=== PATIENT | female | born 1960 | race Caucasian/White ===

== ENCOUNTER 2018-10-09 07:56 | Emergency (ER) | payer BC ==
[2018-10-09 08:15] VITALS: BP 133/94
--- NOTE | 2018-10-09 08:26 | UC ---
Back Pain HPI - HPI Summary HPI Summary: 57 y/o female presents to the urgent care c/o left side lower back pain and left hip pain s/p shoveling yesterday. Pt reports after she shoveled some snow. She stretched her back to removed the snow from the toped of her car. Then she went inside and sat on the floor to work on some papers. When she tried to get up her lower back pain was triggered. Pain is 8/10 sharp w/ movement and her hip feels very stiff. She took 1 tab PO of Aleve last night to alleviate symptoms. She states Hx of lumbar fractures s/p surgery about [address] [facility].Pt denies saddle anesthesia, urinary or fecal incontinence, urianry symptoms, fever, flank pain, abdominal pain, N/V/D. - History of Current Complaint Chief Complaint: UCLowerExtremity Stated Complaint: LT SIDE LOWER BACK PAIN Time Seen by Provider: 10/09/18 08:16 Hx Obtained From: Patient ?: No - Menopausal Onset/Duration: Sudden Onset, Lasting Days - 1 day, Still Present, Worse Since - this morning Timing: Constant, Lasting Days - 1 day Severity Initially: Moderate Severity Currently: Moderate Pain Intensity: 8 Pain Scale Used: 0-10 Numeric Back Pain: Is Discrete @ - left side of the lower back, Radiates To - left hip Character: Sharp - w/ standing up, Spasmodic Aggravating Factor(s): Movement - Allergies/Home Medications Allergies/Adverse Reactions: Allergies Allergy/AdvReac Type Severity Reaction Status Date / Time No Known Allergies Allergy Verified 10/09/18 08:10 Home Medications: Home Medications diphenhydrAMINE HCl [Allergy Medication] 25 mg PO DAILY 10/09/18 [History Confirmed 10/09/18] PMH/Surg Hx/FS Hx/Imm Hx Previously Healthy: Yes Other Endocrine History: osteopenia - Surgical History Surgical History: Yes Surgery Procedure, Year, and Place: back surgery 5-6 years ago. implant for L ear - Family History Known Family History: Positive: Hypertension, Diabetes - Social History Occupation: Employed Full-time Lives: With Family Alcohol Use: Rare Substance Use Type: None Smoking Status (MU): Never Smoked Tobacco Review of Systems All Other Systems Reviewed And Are Negative: Yes Constitutional: Positive: Negative Skin: Positive: Negative Eyes: Positive: Negative ENT: Positive: Negative Respiratory: Positive: Negative Cardiovascular: Positive: Negative Gastrointestinal: Positive: Negative Genitourinary: Positive: Negative Motor: Positive: Negative Neurovascular: Positive: Negative Musculoskeletal: Positive: Decreased ROM - lower back, Other: - lower back pain s/p shoveling Neurological: Positive: Negative Psychological: Positive: Negative Is Patient Immunocompromised?: No Physical Exam - Summary Physical Exam Summary: Vital Signs Reviewed: Yes Appearance: Well-Appearing, Well-Nourished, female sitting in the examining table w/o any apparent distress. Eyes: Positive: Conjunctiva Clear - PERRLA, EOMI. ENT: Positive: Normal ENT inspection, Hearing grossly normal, Pharynx normal, TMs normal, Uvula midline Neck: Positive: Supple, Nontender, No Lymphadenopathy Respiratory: Positive: Chest non-tender, Lungs clear, Normal breath sounds, No respiratory distress Cardiovascular: Positive: RRR, No Murmur, Pulses Normal, Brisk Capillary Refill Abdomen Description: Positive: Nontender, No Organomegaly, Soft. Negative: CVA Tenderness (R), CVA Tenderness (L) Bowel Sounds: Positive: Present Musculoskeletal: Positive: Strength Intact, BACK: Patient walked into the urgent care room with symmetric ambulation, No signs of limping, antalgic, able to bear weight. No signs of trauma, No masses palpated. left side paraspinal muscle tenderness at the level of L5-S1 w/ spasm, No CVAT B/L , no flank ecchymosis . No sacroiliac notch tenderness, No saddle anesthesia. ROM: limited due to pain, Straight Leg Raise: negative. Patellar reflexes: brisk, symmetric Muscle strength lower extremities. Dorsiflexion/ plantar flexion of ankles. Heel / toe walk. Lower extremities: Femoral, popliteal, posterior tibial, and dorsalis pedis pulses WNL, POint tenderness over the mid glutues, no swelling or bruising observed. Pt refuse rectal exam Neurological: Positive: Alert, Muscle Tone Normal Psychological Exam: Normal Skin Exam: Normal Triage Information Reviewed: Yes Vital Signs: Initial Vital Signs Temp 97.3 F 10/09/18 08:11 Pulse 98 10/09/18 08:11 Resp 20 10/09/18 08:11 BP 133/94 10/09/18 08:11 Pulse Ox 97 10/09/18 08:11 Back Pain Course/Dx - Course Course Of Treatment: 57 y/o female presents to the urgent care c/o left side lower back pain and left hip pain s/p shoveling yesterday. Pt reports after she shoveled some snow. She stretched her back to removed the snow from the toped of her car. Then she went inside and sat on the floor to work on some papers. When she tried to get up her lower back pain was triggered. Pain is 8/10 sharp w / movement and her hip feels very stiff. She took 1 tab PO of Aleve last night to alleviate symptoms. She states Hx of lumbar fractures s/p surgery about [address] [facility].Pt denies saddle anesthesia, urinary or fecal incontinence , urianry symptoms, fever, flank pain, abdominal pain, N/V/D. Hx obtained. PE: left side paraspinal muscle point tenderness at the level of the L5-S1 w/ muscle spasm and point tenderness over the mid left gluteus w/ decrease ROM due to pain at the same level on examination. Lumbosacral X-ray and left hip X-ray ordered, Impression: degenerative disc disease at diffent level most severe at L5-S1. Left hipat the greater throcanter w/ chonic hip abductor tendinopathy as per radiologist. Pt educated on radiologic results. Pt given a toradol IM inj ordered at the clinic. Given by nurse. Pt tolerated well IM inj and pain decrease. Pt Rx Naproxen PO, flexeril PO and Medrol dose chilango. Patient was instructed to the f/u Nurse Nkechi Orozco the Spinal coordinator for further managment on her symptoms.Pt's BP is elevated today advised to decrease salt in diet, monitor BP and f/u with PCP for further management. Patient understands and agrees. All questions were answered at patient satisfaction. Pt left clinic hemodynamically stable an dambulating. - Differential Dx/Diagnosis Differential Diagnosis/HQI/PQRI: Arthritis, Fracture, Herniated Disc, Renal Colic, Strain, Sprain Provider Diagnosis: Tendinopathy of hip, Spasm of muscle of lower back, Degenerative disc disease, lumbar, Elevated BP without diagnosis of hypertension Discharge - Sign-Out/Discharge Documenting (check all that apply): Patient Departure - D/c home All imaging exams completed and their final reports reviewed: Yes - Discharge Plan Condition: Stable Disposition: HOME Prescriptions: Cyclobenzaprine TAB* [Flexeril 10 MG TAB*] 10 mg PO TID PRN #21 tab PRN Reason: Spasms - Back methylPREDNISolone [Medrol Dosepak 4 MG*] 4 mg PO .SEE [employer]ILAN[employer] INSTRUCTION #1 chilango Naproxen TAB* [Naprosyn 250 mg TAB*] 500 mg PO Q8H PRN #30 tab PRN Reason: Pain Patient Education Materials: Low Back Strain (ED), Muscle Spasm (ED), Degenerative Disc Disease (ED) Forms: *Work Release Referrals: Helena Clark PA [Primary Care Provider] - 3 Days Pamela Orozco Ae, RN [Registered Nurse] - 3 Days Additional Instructions: 1- Please take Naproxen PO as directed after meals for pain. Medrol dose chilango as directed to alleviate symptoms 2- Take Flexeril PO as directed for muscle spasm. Please do not drive while taking the medication. 3- Avoid strenuous exercise or heavy lifting. 4- Please call Spinal Nurse Navigator: Nkechi Orozco: [phone] for further management of your Degenerative disc disease and herniated discs. 5- Your BP is elevated today. please decrease salt in your diet, monitor BP and if it continues to be elevated please f/u with your PCP for further management. - Billing Disposition and Condition Condition: STABLE Disposition: Home - Attestation Statements Provider Attestation: Per institutional requirements, I have reviewed the chart, however, I was not consulted specifically or made aware of this patient by the midlevel provider. I did not personally evaluate, interact with , or disposition this patient.
[2018-10-09] MEDS ORDERED: Ketorolac INJ* 30 MG/ML 1 ML VIAL IM ONE (08:28)
== END 2018-10-09 09:29 | disposition home or self-care (01) ==
LOC: UCCORT 07:56
DX: M76.892 Other specified enthesopathies of left lower limb, excluding foot (principal); M62.830 Muscle spasm of back; M51.37 Other intervertebral disc degeneration, lumbosacral region; M85.80 Other specified disorders of bone density and structure, unspecified site; R03.0 Elevated blood-pressure reading, without diagnosis of hypertension; Z78.0 Asymptomatic menopausal state; Z98.890 Other specified postprocedural states
CPT/HCPCS: 72110; 96372; 99202; G0463; J1885